=== PATIENT | male | born 1980 | race Caucasian/White ===

== ENCOUNTER 2017-01-10 19:05 | Emergency (ER) | payer OTHER ==
[~2017-01-10] VITALS: Ht 171.5 cm; Wt 73.5 kg
[~2017-01-10 19:05] MED LIST: DOXY50TA2 PO
[2017-01-10 19:08] VITALS: TEMP 36.7; Ht 171.5 cm; Wt 73.5 kg
[2017-01-10] MEDS ORDERED: SUCRALFATE 1 GM TAB PO STA (19:34)
[2017-01-10] MEDS ORDERED: FAMOTIDINE 20 MG TAB PO STA (19:34)
[2017-01-10] MEDS ORDERED: GI COCKTAIL PO STA (19:34)
[2017-01-10] MEDS ORDERED: LIDOCAINE HCL 2% VISC SOLN 20 ML UDC ONE (19:51)
[2017-01-10] MEDS ORDERED: ALUMINUM/MAGNESIUM SUSP 30 ML UDC ONE (19:51)
--- NOTE | 2017-01-10 19:54 | DIAGNOSTIC IMAGING REPORT ---
CHEST ONE VIEW PORTABLE HISTORY: 36 years-old Male acute chest pain COMPARISON: Chest radiograph 06/01/2015 TECHNIQUE: Portable upright AP view of the chest. FINDINGS: Cardiomediastinal and hilar silhouettes are within normal limits. There is no pneumothorax, pleural effusion or focal airspace consolidation. No overt pulmonary edema. The bones are grossly intact. Upper abdominal structures are within normal limits. IMPRESSION: No acute cardiopulmonary process. The above report was generated using voice recognition software. It may contain grammatical, syntax or spelling errors. Electronically signed by: Davidson Michelle M.D. 01/10/2017 7:52 PM Dictated Date/Time: 01/10/2017 7:51 PM
[2017-01-10 20:00] VITALS: O2SAT 97
[2017-01-10 20:09] LABS: BASO % 0.6 %; BASO ABS # 0.03 K/uL (0-0.2); COMPLETE YES; EOS % 1.7 %; HEMATOCRIT 39.4 % (42-52); IG% 0.2 %; LYMPH % 38.1 %; LYMPH ABS # 2.05 K/uL (1.2-3.4); MEAN CELL VOLUME 86.6 fL (80-100); MEAN CORPUSCULAR HEMOGLOBIN 31.2 pg (25-34); MEAN PLATELET VOLUME 9.5 fL (7.4-10.4); NEUT % 51.4 %; PLATELET COUNT 204 K/uL (130-400); RED BLOOD COUNT 4.55 M/uL (4.7-6.1); WHITE BLOOD COUNT 5.38 K/uL (4.8-10.8)
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
[2017-01-10 20:27] LABS: ALT/SGPT 28 U/L (12-78); BLOOD UREA NITROGEN 10 mg/dl (7-18); BUN/CREATININE RATIO 10.3 (10-20); CALCIUM 9.5 mg/dl (8.5-10.1); CARBON DIOXIDE 25 mmol/L (21-32); CHLORIDE 107 mmol/L (98-107); GLUCOSE 91 mg/dl (70-99); POTASSIUM 4.4 mmol/L (3.5-5.1); SODIUM 140 mmol/L (136-145)
[2017-01-10 20:32] LABS: ALKALINE PHOSPHATASE 59 U/L (45-117); AST/SGOT 27 U/L (15-37); CKMB/CK RATIO 1.3 (0-3.0)
[2017-01-10 21:26] VITALS: BP 104/76; PULSE 70; O2SAT 98
== END 2017-01-10 21:26 | disposition home or self-care (01) ==
LOC: C.EDB 19:06 → C.EDC 21:26
DX: R07.9 Chest pain, unspecified (principal); F17.200 Nicotine dependence, unspecified, uncomplicated; Z87.81 Personal history of (healed) traumatic fracture; Z98.890 Other specified postprocedural states

== ENCOUNTER 2017-07-30 19:47 | Emergency (ER) | payer OTHER ==
[~2017-07-30] VITALS: Ht 170.2 cm; Wt 71.0 kg
[2017-07-30 19:55] VITALS: TEMP 37.1; Ht 170.2 cm; Wt 71.0 kg
--- NOTE | 2017-07-30 20:51 | DIAGNOSTIC IMAGING REPORT ---
L HUMERUS MIN 2 VIEWS ROUTINE CLINICAL HISTORY: 36 years-old Male presenting with Humerus injury 2 weeks ago/pain. TECHNIQUE: Frontal and lateral views of the left humerus were obtained. COMPARISON: None. FINDINGS: No acute fracture or malalignment. No advanced degenerative change. No radiographic soft tissue abnormality. IMPRESSION: No acute osseous injury. Electronically signed by: Rober Mehta M.D. 07/30/2017 8:50 PM Dictated Date/Time: 07/30/2017 8:50 PM
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
[2017-07-30 21:11] VITALS: BP 124/81; PULSE 86; O2SAT 96
== END 2017-07-30 21:12 | disposition home or self-care (01) ==
LOC: C.EDB 19:49 → C.EDD 21:12
DX: S40.022A Contusion of left upper arm, initial encounter (principal); W50.0XXA Accidental hit or strike by another person, initial encounter